=== PATIENT | male | born 1960 | race Caucasian/White ===

== ENCOUNTER 2017-11-11 06:31 | Outpatient (CLI) | payer OTHER ==
[~2017-11-11] VITALS: Ht 172.7 cm; Wt 99.1 kg
[2017-11-11] MEDS ORDERED: MULTIPLE VITAMI1 TA1 PO (07:03)
[2017-11-11] MEDS ORDERED: LIPITOR20 MG PO (07:03)
[2017-11-11] MEDS ORDERED: FLAXSEED OIL1000 MG PO (07:04)
[2017-11-11] MEDS ORDERED: ASCORBIC ACID500 MG PO (07:04)
[2017-11-11] MEDS ORDERED: VITAMIN E400 UNI2 PO (07:05)
[2017-11-11] MEDS ORDERED: CITRATE OF MAG300 ML PO (07:06)
[2017-11-11 07:14] VITALS: BP 136/78; Ht 172.7 cm; Wt 99.1 kg
[2017-11-11 07:42] LABS: APTT 26.3 SECONDS (22.8-39.4); INR 0.96 (0.85-1.17); PROTIME 12.4 SECONDS (11.6-15.0)
[2017-11-11 07:43] LABS: ANION GAP 12.3 mmol/L (8-16); CALCIUM 9.2 mg/dL (8.5-10.1); CARBON DIOXIDE 26.8 mmol/L (21.0-32.0); CREATININE - SERUM 1.1 mg/dL (0.6-1.3); POTASSIUM - SERUM 4.1 mmol/L (3.5-5.1)
[2017-11-11 08:09] LABS: BASOPHILS 0.5 % (0-2); EOSINOPHILS 2.7 % (0-7); HEMATOCRIT 48.5 % (42.0-54.0); HEMOGLOBIN 16.6 g/dL (13.5-17.5); IMMATURE GRANULOCYTES 0.3 % (0-5); LYMPHOCYTES 21.9 % (15-50); MCH 32.1 pg (26.0-34.0); MCHC 34.2 g/dL (31.0-37.0); MCV 93.8 fL (80.0-100.0); MEAN PLATELET VOLUME 10.4 fL (7.4-10.4); MONOCYTES 11.6 % (2-11); PLATELET COUNT 205 10x3/uL (130-400); RBC 5.17 10x6/uL (4.20-6.10); RDW 12.7 % (11.5-14.5); WBC 7.3 10x3/uL (4.8-10.8)
== END 2017-11-11 14:25 | disposition home or self-care (01) ==
LOC: D.OPS 06:31 → D.CT 09:00 → D.OPS 14:25
PROVIDERS: Specialist
DX: B18.2 Chronic viral hepatitis C (principal); Z01.812 Encounter for preprocedural laboratory examination

== ENCOUNTER → 2018-12-15 09:09 | Outpatient (CLI) | payer OTHER ==
[2017-11-11 07:14] VITALS: BMI 33.2
[~2018-12-15 09:09] MED LIST: ASCORBIC ACID500 MG PO; CITRATE OF MAG300 ML PO; FLAXSEED OIL1000 MG PO; LIPITOR20 MG PO; MULTIPLE VITAMI1 TA1 PO; VITAMIN E400 UNI2 PO
== END | disposition home or self-care (01) ==
LOC: D.CT 09:09
DX: R91.8 Other nonspecific abnormal finding of lung field (principal)

== ENCOUNTER → 2019-01-04 07:27 | Outpatient (CLI) | payer OTHER | END | disposition home or self-care (01) | LOC: D.US 07:27 | DX: I71.4 Abdominal aortic aneurysm, without rupture (principal) ==

== ENCOUNTER → 2019-07-30 08:42 | Outpatient (CLI) | payer OTHER ==
[2017-11-11 07:14] VITALS: BMI 33.2
--- NOTE | 2019-08-04 14:07 | EC ---
PATIENT:LEW GREENBERG DATE OF SERVICE: 07/30/19 SEX: M MEDICAL RECORD: [id number] DATE OF : 58 [facility] AGE OF PATIENT: 58 ADMISSION DATE: 07/30/19 REFERRING PHYSICIAN: INTERPRETING PHYSICIAN: JACINTO GARDUNO MD ECHOCARDIOGRAM REPORT ECHO CHARGES 4 ECHO COMPLETE Date: 07/30/19 CLINICAL DIAGNOSIS: AI/ASCENDING AORTIC ANEURYSM ECHOCARDIOGRAPHIC MEASUREMENTS (adult normal given) AC root (d.<3.7cm) 3.9 cm LV Septum d (<1.2 cm> 1.4 cm Valve Excursion 1.9 cm LV Septum (systole) 2.0 cm Left Atria (s.<4.0cm> 4.8 cm LVPW d(<1.2cm) 1.3 cm RV (d.<2.3cm) 2.9 cm LVPW (sytole) 1.9 cm LV diastole(<5.6CM) 4.9 cm MV E-F(>70mm/sec) cm LV systole 2.9 cm LVOT Diameter 2.1 cm MV exc.(>10mm) cm Est.ejection fraction (50-75%) % DOPPLER: LVIT cm/sec A 79.0 cm/sec E 51.0 cm/sec LA cm/sec RVSP 32.4 mmHg LVOT 101 cm/sec AOP1/2T 399.0m/s Asc. Ao 203 cm/sec RVOT 73.0 cm/sec RA cm/sec PA 113 cm/sec AV Gradient Peak 17.0 mmHg AV Mean 8.9 mmHg AV Area 1.6 cm MV Gradient Peak 3.2 mmHg MV Mean 1.3 mmHg MV Area cm COMMENTS: ASCENDING AORTA: 4.2 cm OP - HC Synthetic Resin Operator: 1 RONNIE MEANS Economic Analysis Director: 1 Dr. Garduno TAPE# PACS Pericardial Effusion N DATE OF SERVICE: ECHOCARDIOGRAM FINDINGS: 1. Left ventricular chamber size is within normal limits. Left ventricular systolic function is normal. Overall ejection fraction estimated at 55%. 2. Left atrium is enlarged at 4.8 cm. Right atrium and right ventricular chamber sizes are within normal limits. 3. Valvular structures: Aortic valve demonstrates heavy calcification, but ECHOCARDIOGRAM REPORT [id number] LEW GREENBERG only mild aortic stenosis, valve area calculates greater than 2.0 cm-squared. The remaining valvular structures have normal structure and motion. 4. Doppler interrogation elsewise reveals only trace tricuspid regurgitation, no other valvular insufficiency or stenosis. 5. No evidence of pericardial effusion or left ventricular thrombus. TRANSINT:[id number] Voice Confirmation ID: [id number] DOCUMENT ID: [id number] JACINTO GARDUNO MD at 1407 CC: [id number] DICTATION DATE: 07/31/19 1135 SATELLITE TV TECHNICIAN INSTALLER: 07/31/19 1213 DEP CLI 07/30/19 [id number] [place] [address]
== END ==
LOC: D.HCCECHO 08:42
PROVIDERS: ATTEND Internal Medicine Interventional Cardiology
DX: I35.1 Nonrheumatic aortic (valve) insufficiency (principal)

== ENCOUNTER → 2019-12-31 08:22 | Outpatient (CLI) | payer OTHER ==
[2017-11-11 07:14] VITALS: BMI 33.2
== END | disposition home or self-care (01) ==
LOC: D.CT 12-22 09:00
PROVIDERS: ATTEND Thoracic Surgery (Cardiothoracic Vascular Surgery)
DX: I71.2 Thoracic aortic aneurysm, without rupture (principal)